=== PATIENT | male | born 1955 | race Caucasian/White ===

== ENCOUNTER 2017-07-28 22:42 | Emergency (ER) | payer OTHER ==
[~2017-07-28] VITALS: Ht 177.8 cm; Wt 90.7 kg
--- NOTE | ~2017-07-28 | EKG ---
[place], [place] ELECTROCARDIOGRAM REPORT NAME: MARIO SAMAYOA UNIT #: [id number] ROOM: DOCTOR: ANISHA REYES MD BIRTHDATE: [birth year] DOS: 07/28/2017 TIME: 2304 hours. Sinus bradycardia at 55 beats per minute. The tracing is normal. No previous tracing is available for comparison. ANISHA REYES MD CM:EKGRPT:ELECTROCARDIOGRAM REPORT [id number] ANISHA REYES MD
[2017-07-28 23:49] LABS: BASO # 0.1 10*3/uL (0.0-0.1); BASO % 0.8 % (0.0-1.0); EOS # 0.2 10*3/uL (0.0-0.4); EOS % 3.1 % (1.0-4.0); HEMATOCRIT 41.5 % (42.0-52.0); HEMOGLOBIN 14.1 g/dl (14.0-18.0); LYMPH # 2.2 10*3/uL (1.3-4.4); LYMPH % 28.2 % (27.0-41.0); MEAN CELL VOLUME 88.9 fl (80.0-94.0); MEAN CORPUSCULAR HGB 30.2 pg (27.0-31.0); MEAN PLATELET VOLUME 9.5 fl (9.6-12.3); NEUT # 4.2 10*3/uL (2.3-7.9); NEUT % 54.5 % (47.0-73.0); PLATELET COUNT AUTOMATED 228 10*3/uL (130-400); RED BLOOD COUNT 4.67 10*6/uL (4.50-5.90); RED CELL DISTRI WIDTH 14.5 % (0-14.5); WHITE BLOOD COUNT 7.7 10*3/uL (4.8-10.8)
[2017-07-29 00:01] LABS: ACT PARTIAL THROMBO TIME 22.2 SECONDS (20.8-31.5)
[2017-07-29 00:06] LABS: ALBUMIN 3.7 gm/dl (3.1-4.5); ALKALINE PHOSPHATASE 63 U/L (45-117); BUN 11 mg/dl (7-24); CHLORIDE 103 mmol/L (98-107); CREATININE 0.91 mg/dL (0.70-1.30); LIPASE 68 U/L (73-393); SGOT/AST 11 IU/L (3-35); SGPT/ALT 19 U/L (12-78); SODIUM 139 mmol/L (136-145); TOTAL PROTEIN 7.2 gm/dL (6.4-8.2); TROPONIN I < 0.015 ng/ml (<0.045)
== END 2017-07-29 00:46 | disposition home or self-care (01) ==
LOC: ED 22:42
PROVIDERS: Nurse Practitioner Family
DX: E11.649 Type 2 diabetes mellitus with hypoglycemia without coma (principal)